=== PATIENT | female | born 1985 | race African-American/Black ===

== ENCOUNTER 2017-12-29 18:17 | Inpatient (IN) | payer OTHER ==
[2017-12-29] MEDS ORDERED: ACETAMINOPHEN INJECTION 100 ML IVPB ONE (18:43)
[2017-12-29] MEDS ORDERED: SODIUM CHLORIDE 1,000 ML IV STA (18:47)
[2017-12-29 19:09] LABS: VENOUS PC02 41.1 mmHg (38-52); VENOUS PH 7.4 (7.32-7.42)
[2017-12-29 19:14] LABS: BASO % 0.2 % (0-2.0); HEMATOCRIT 35.3 % (32.4-45.2); HEMOGLOBIN 10.8 GM/dL (10.7-15.3); MCHC 30.6 g/dl (32.0-36.0); MEAN CELL VOLUME 64.4 fl (80-96); MEAN PLT VOLUME 8.3 fl (7.5-11.1); MONO % 15.4 % (3.8-10.2); NEUT % 71.4 % (42.8-82.8); PLATELET COUNT 310 K/MM3 (134-434); RBC 5.47 M/mm3 (3.60-5.2); RDW 17.1 % (11.6-15.6); WHITE BLOOD COUNT 5.8 K/mm3 (4.0-10.0)
[2017-12-29 19:22] LABS: URINE APPEARANCE CLOUDY; URINE BILIRUBIN NEGATIVE (<2.0 mg/dL); URINE COLOR YELLOW; URINE GLUCOSE (UA) NEGATIVE (NEGATIVE); URINE KETONE 2+ (NEGATIVE); URINE LEUK ESTERASE NEGATIVE (NEGATIVE); URINE NITRITE NEGATIVE (NEGATIVE); URINE PROTEIN 2+ (NEGATIVE); URINE UROBILINOGEN NEGATIVE mg/dL (0.2-1.0)
[2017-12-29 19:27] LABS: MCH 19.7 pg (25.7-33.7)
[2017-12-29 19:29] LABS: EPI CELLS MANY /HPF (FEW); URINE BACTERIA RARE /hpf (NONE SEEN); URINE MUCUS RARE
--- NOTE | 2017-12-29 19:47 | PDOC ---
History of Present Illness - General History Source: Patient Exam Limitations: No Limitations - History of Present Illness Initial Comments: 12/29/17 19:36 32 yo female no significant pmh, BIBA from urgent care, presents to ED with 3 days of NB/NB vomiting, fevers, headache, generalized weakness and poor appetite. Pt returned from a 6 month trip from [place] 1 week ago and admits to drinking tap water and states her was on the trip with her and developed AL that have subsided. Pt went to urgent care today and become profoundly weak to the point where she collapsed in the clinic hitting the side of her head. Patient denies changes in vision, 1 sided sensory deficits or weakness or new/worsening AL after the fall. Pt denies cough, sore throat, ear pain, burning/pain or increased freq on urination, no neck stiffness, abdominal pain, CP or SOB but does admit to having loose stools since Thursday and not being able to eat. <Didier Brooks - Last Filed: 12/29/17 21:57> <Marcia Raymundo - Last Filed: 12/29/17 22:18> - General Chief Complaint: SIRS, Suspected/Possible Stated Complaint: Diarrhea Time Seen by Provider: 12/29/17 18:40 Past History - Past Medical History Asthma: Yes COPD: No - Suicide/Smoking/Psychosocial Hx Smoking History: Never smoked Have you smoked in the past 12 months: No Information on smoking cessation initiated: No Hx Alcohol Use: No Drug/Substance Use Hx: No Substance Use Type: None <Didier Brooks - Last Filed: 12/29/17 21:57> <Marcia Raymundo - Last Filed: 12/29/17 22:18> - Past Medical History Allergies/Adverse Reactions: Allergies Allergy/AdvReac Type Severity Reaction Status Date / Time No Known Allergies Allergy Verified 12/29/17 18:29 Review of Systems - Review of Systems Constitutional: Yes: Chills, Fever Respiratory: No: Shortness of Breath ABD/GI: Yes: Diarrhea (loose non bloody stools 3 days), Nausea, Vomiting (2X a day for 3 days NB/NB). No: Constipated : No: Burning, Dysuria Musculoskeletal: No: Back Pain Neurological: Yes: Headache, Weakness (generalized). No: Numbness, Paresthesia <Didier Brooks - Last Filed: 12/29/17 21:57> *Physical Exam - Vital Signs Last Vital Signs Temp Pulse Resp BP Pulse Ox 102.9 F H 104 H 20 125/79 100 12/29/17 18:29 12/29/17 18:29 12/29/17 18:29 12/29/17 18:29 12/29/17 18:29 - Physical Exam General Appearance: Yes: Nourished, Appropriately Dressed, Apparent Distress ( not able to sit up in bed due to generalized weakness) HEENT: positive: EOMI, JANINA. negative: TM Bulging, TM Dull, TM Erythema Respiratory/Chest: positive: Lungs Clear, Normal Breath Sounds. negative: Crackles, Wheezing Cardiovascular: positive: Regular Rhythm, Regular Rate (81 BPM on reassesment ) , S1, S2. negative: Edema, JVD, Murmur Vascular Pulses: Dorsalis-Pedis (R): 3+, Doralis-Pedis (L): 3+ Gastrointestinal/Abdominal: positive: Flat, Soft. negative: Pulsatile Mass, Guarding, Rebound, Tenderness Extremity: positive: Normal Capillary Refill Integumentary: positive: Normal Color, Dry, Warm Neurologic: positive: bin filler II-XII NML intact, Fully Oriented, Alert, Normal Mood/ Affect, Normal Response, Motor Strength 5/5. negative: Facial Droop, Sensory Deficit <Didier Brooks - Last Filed: 12/29/17 21:57> - Vital Signs Last Vital Signs Temp Pulse Resp BP Pulse Ox 101.6 F H 81 22 H 107/67 100 12/29/17 21:57 12/29/17 21:57 12/29/17 21:07 12/29/17 21:57 12/29/17 21:57 <Marcia Raymundo - Last Filed: 12/29/17 22:18> ED Treatment Course - LABORATORY CBC & Chemistry Diagram: 12/29/17 18:52 12/29/17 18:52 - ADDITIONAL ORDERS Additional order review: Laboratory Results 12/29/17 12/29/17 18:52 18:52 VBG pH 7.40 POC VBG pCO2 41.1 POC VBG pO2 26.0 L Mixed VBG HCO3 24.8 Urine Color Yellow Urine Appearance Cloudy Urine pH 5.0 Ur Specific [place] 1.027 Urine Protein 2+ H Urine Glucose (UA) Negative Urine Ketones 2+ H Urine Blood Negative Urine Nitrite Negative Urine Bilirubin Negative Urine Urobilinogen Negative Ur Leukocyte Esterase Negative 12/29/17 18:52 RBC 5.47 H MCV 64.4 L MCHC 30.6 L RDW 17.1 H MPV 8.3 Neutrophils % 71.4 Lymphocytes % 13.0 Monocytes % 15.4 H Eosinophils % 0.0 Basophils % 0.2 <Didier Brooks - Last Filed: 12/29/17 21:57> - LABORATORY CBC & Chemistry Diagram: 12/29/17 18:52 12/29/17 18:52 - ADDITIONAL ORDERS Additional order review: Laboratory Results 12/29/17 12/29/17 12/29/17 19:34 19:34 18:52 PT with INR 18.40 H INR 1.55 H PTT (Actin FS) 36.5 VBG pH POC VBG pCO2 POC VBG pO2 Mixed VBG HCO3 Sodium Potassium Chloride Carbon Dioxide Anion Gap BUN Creatinine Creat Clearance w eGFR Random Glucose Lactic Acid 1.0 Calcium Total Bilirubin AST ALT Alkaline Phosphatase Troponin I Total Protein Albumin Urine Color Urine Appearance Urine pH Ur Specific [place] Urine Protein Urine Glucose (UA) Urine Ketones Urine Blood Urine Nitrite Urine Bilirubin Urine Urobilinogen Ur Leukocyte Esterase Urine WBC (Auto) Urine RBC (Auto) Ur Epithelial Cells Urine Bacteria Urine Mucus Urine HCG, Qual Negative 12/29/17 12/29/17 12/29/17 18:52 18:52 18:52 PT with INR INR PTT (Actin FS) VBG pH 7.40 POC VBG pCO2 41.1 POC VBG pO2 26.0 L Mixed VBG HCO3 24.8 Sodium 136 Potassium 3.9 Chloride 100 Carbon Dioxide 25 Anion Gap 11 BUN 11 Creatinine 0.9 Creat Clearance w eGFR > 60 Random Glucose 65 L Lactic Acid Calcium 8.5 Total Bilirubin 0.3 AST 21 ALT 23 Alkaline Phosphatase 80 Troponin I < 0.02 Total Protein 7.9 Albumin 3.8 Urine Color Urine Appearance Urine pH Ur Specific [place] Urine Protein Urine Glucose (UA) Urine Ketones Urine Blood Urine Nitrite Urine Bilirubin Urine Urobilinogen Ur Leukocyte Esterase Urine WBC (Auto) Urine RBC (Auto) Ur Epithelial Cells Urine Bacteria Urine Mucus Urine HCG, Qual 12/29/17 18:52 PT with INR INR PTT (Actin FS) VBG pH POC VBG pCO2 POC VBG pO2 Mixed VBG HCO3 Sodium Potassium Chloride Carbon Dioxide Anion Gap BUN Creatinine Creat Clearance w eGFR Random Glucose Lactic Acid Calcium Total Bilirubin AST ALT Alkaline Phosphatase Troponin I Total Protein Albumin Urine Color Yellow Urine Appearance Cloudy Urine pH 5.0 Ur Specific [place] 1.027 Urine Protein 2+ H Urine Glucose (UA) Negative Urine Ketones 2+ H Urine Blood Negative Urine Nitrite Negative Urine Bilirubin Negative Urine Urobilinogen Negative Ur Leukocyte Esterase Negative Urine WBC (Auto) 5 Urine RBC (Auto) 3 Ur Epithelial Cells Many Urine Bacteria Rare Urine Mucus Rare Urine HCG, Qual 12/29/17 18:52 RBC 5.47 H MCV 64.4 L MCHC 30.6 L RDW 17.1 H MPV 8.3 Neutrophils % 71.4 Lymphocytes % 13.0 Monocytes % 15.4 H Eosinophils % 0.0 Basophils % 0.2 - Medications Given in the ED: ED Medications Discontinued Medications Generic Name Dose Route Start Last Admin Trade Name Freq PRN Reason Stop Dose Admin Sodium Chloride 1,000 mls @ 1,000 mls/hr 12/29/17 18:47 12/29/17 18:59 Normal Saline - IV 12/29/17 19:46 1,000 mls/hr ASDIR STA Administration Ciprofloxacin/Dextrose 400 mg in 200 mls @ 200 mls/hr 12/29/17 20:22 21:09 Cipro 400 Mg Premix Ivpb (Restricted To Id) IVPB 12/29/17 21:21 200 mls/hr ONCE ONE Administration Ketorolac Tromethamine 15 mg 12/29/17 20:22 12/29/17 21:15 Toradol Injection - IVPUSH 12/29/17 20:23 15 mg ONCE ONE Administration Sodium Chloride 1,000 ml 12/29/17 20:22 12/29/17 21:09 Normal Saline - IV 12/29/17 20:23 1,000 ml ONCE ONE Administration <Marcia Raymundo - Last Filed: 12/29/17 22:18> Medical Decision Making - Medical Decision Making 12/29/17 20:25 32 yo BIBA after being profoundly weak with LOC/syncopal event. vitals 104 HR and 102.9 temp SIRS workup completed due to protocol neg WBC no anemia no electrolyte abnormalities no UTI Pt received 1L of fluid and 1 g of tylenol , rectal temp 101.4 feeling a little better but still complaining of AL Vitals reassessed: 100% O2 RA, 107/67, 81 HR, 101.6 temp DDX: Gastroenteritis, travelers diarrhea Cipro and another L NS ordered, likely travelers diarrhea Will admit to observation do to severity of symptoms <Didier Brooks - Last Filed: 12/29/17 21:57> *DC/Admit/Observation/Transfer - Discharge Dispostion Decision to Admit order: Yes <Didier Brooks - Last Filed: 12/29/17 21:57> - Discharge Dispostion Decision to Admit order: Yes Decision to Admit order Date/Time: 12/29/17 22:17 <Marcia Raymundo - Last Filed: 12/29/17 22:18> Diagnosis at time of Disposition: Travelers' diarrhea, Gastroenteritis - Discharge Dispostion Condition at time of disposition: Stable - Referrals Referrals: ON STAFF,NOT [Primary Care Provider] - - Patient Instructions - Post Discharge Activity
[2017-12-29 19:48] LABS: ALBUMIN 3.8 g/dl (3.4-5.0); ALK PHOS 80 U/L (45-117); ANION GAP 11 MMOL/L (8-16); BILIRUBIN,TOTAL 0.3 mg/dL (0.2-1); BLOOD UREA NITROGEN 11 mg/dL (7-18); CALCIUM 8.5 mg/dL (8.5-10.1); CHLORIDE 100 mmol/L (98-107); CO2 25 mmol/L (21-32); CREATININE 0.9 mg/dL (0.55-1.3); GLUCOSE,RANDOM 65 mg/dL (74-106); POTASSIUM 3.9 mmol/L (3.5-5.1); SGOT/AST 21 U/L (15-37); SGPT/ALT 23 U/L (13-61); SODIUM 136 mmol/L (136-145); TOT PROT 7.9 g/dl (6.4-8.2)
[2017-12-29 20:18] LABS: INR 1.55 (0.83-1.09); PROTHROMBIN TIME (PATIENT) 18.4 SEC (9.7-13.0)
[2017-12-29 20:20] LABS: ACTIVATED PTT 36.5 SECONDS (25.2-36.5)
--- NOTE | 2017-12-29 20:21 | PDOC ---
Attending Attestation - Resident Resident Name: Didier Brooks - ED Attending Attestation I have performed the following: I have examined & evaluated the patient, The case was reviewed & discussed with the resident, I agree w/resident's findings & plan - HPI HPI: 12/29/17 21:59 The patient is a 32 year old female, with no significant past medical history, who presents to the emergency department from urgent care after sudden onset of generalized weakness and syncope. She reportedly hit the right side of her face on the ground and woke up on the floor after an unknown amount of time, however, reports her family witness the syncopal episode. The patient states she went to the urgent care to be evaluated for 3 days with loose stools, nausea , vomiting, subjective fevers, headache, generalized weakness and poor appetite. The patient reportedly returned from a 6 month trip from [place] 1 week ago and admits to drinking tap water. no other sick contacts, though improved with similar sx. The patient denies chest pain, shortness of breath, headache and dizziness. The patient denies dysuria, frequency, urgency and hematuria. Allergies: NKDA - Physicial Exam PE: 12/29/17 21:59 NAD, malaised appearing, PERRL, EOMI, dry mucus membranes, nl conjunctiva, anicteric; neck supple. lungs clear, +tachycardicm abdomen soft nontender. + obese. KOENIG x4, no focal neuro deficits. No peripheral edema. normal color for ethnicity, [facility]. 12/29/17 22:04 - Medical Decision Making 12/29/17 21:57 32 YOF with AP, n/v/d, x 3 days, recent trip [place]. also syncopal episode today, now back to baseline DDx abdominal pain: Renal colic, biliary colic, GERD, PUD, esophageal spasm, pancreatitis, hepatitis, colitis, gastroenteritis, cholecystitis, UTI, pyelonephritis, metabolic/electrolyte derangements. Vital signs reviewed, +tachy and febrile. laboratory results and imaging reviewed, basic labs and lytes wnl, notable for normal wbc ct, LFTs and lipase. neg preg test. UA_neg for infection, +ketones c/w dehydration CXR_clear, no acute pathology ED course: no acute events, remained stable and well appearing. Clinically improved after interventions, including IVF and antipyretics/analgesia. ciprofloxacin for traveler's diarrhea/gastroenteritis sx. no CT head indicated, back to baseline, mild trauma and witnessed. no focal neuro deficits. continues to be malaised, febrile and symptomatic, difficulty tolerating PO. pt prefers to be admitted for short stay, will observation admit for hydration, serial exams and monitoring Dispo: admit to hospitalist team for observation, gastroenteritis, supportive care and hydration Dx. gastroenteritis, diarrheal illness, dehydration 12/29/17 22:02 12/29/17 22:04
[2017-12-29] MEDS ORDERED: KETOROLAC TROMETHAMINE 15 MG/ML VIAL IVPUSH ONE (20:22)
[2017-12-29] MEDS ORDERED: CIPROFLOXACIN 400 MG/D5W 400 MG/200 ML IVPB IVPB ONE (20:22)
[2017-12-29] MEDS ORDERED: SODIUM CHLORIDE 0.9% 500 ML INFUS.BAG IV ONE (20:22)
[2017-12-29] MEDS ORDERED: KETOROLAC TROMETHAMINE 15 MG/ML VIAL ONE (20:45)
[2017-12-29 20:54] LABS: ANISOCYTOSIS 1+
--- NOTE | 2017-12-29 22:57 | PN ---
Teaching Attending Note Name of Resident: Karma Barbosa ATTENDING PHYSICIAN STATEMENT I saw and evaluated the patient. I reviewed the resident's note and discussed the case with the resident. I agree with the resident's findings and plan as documented. SUBJECTIVE: Seen and examined. Please refer to resident note for additional historical information. She is a 32 y/o AAF with no pertinent PMH who takes no chronic Rx medications. She presents to the ER with a CC of diarrhea since thursday with occasional nausea and vomitting. She lives in [facility] but visits her significant other in [place]. Just got back from [facility] on thursday; no sick contacts, no food exposures, no rashes, no bug bites, no bone pain. Denies any chest pain or pulmonary sx. She was slightly tachy on presentation but it did resolve with fluids. She had some nausea and vomitting through yesterday but today it is only the diarrhea; 2x before she came and once while in ER. Will place on observation for additional workup and monitoring. OBJECTIVE: VSS, labs and imaging reviewed NAD, resting in bed, AAOx3 NT ND +BS RRR s1/2 no mgr Lungs CTAB sym exp No JVD, trachea midline ASSESSMENT AND PLAN: 1) Acute Diarrheal Illness, likely gastroenteritis -Febrile with nausea and vomitting and diarrhea; only diarrhea today x3 so far. She is hemodynamically stable and tachycardia resolved with fluid repletion. Got back from [facility] on Thursday and developed sx Thursday; no sick contacts, no food exposures, etc. No bone pain, no rashes. -Will obtain stool cx, lactoferrin, Cdiff. If she worsens or develops a white count or abdominal pain will scan her abdomen. Empirically give 7 day course metro/lq -Advance diet as tolerated -PRN nausea control; if stool studies are negative can add immodium 2) Obesity -Naturopath when clinically appropriate FENA -LR@100 -Monitor and replace PRN -Full liquids advancing as tolerated -As tolerated Full Code
[2017-12-30] MEDS: DEXTROSE 5%-LACTATED RINGERS 1,000 ML IV SCH ×2 (00:05→17:42)
--- NOTE | 2017-12-30 00:07 | HP ---
CHIEF COMPLAINT: fever and diarrhea PCP: HISTORY OF PRESENT ILLNESS: Patient is a 32 y/o female with a history of asthma who presents with fever and diarrhea. She reports these symptoms began two days ago. Today she decided to go to urgent care where she fainted in the waiting room and reports she hit her head. She has had four episodes of diarrhea yesterday and today, about three episodes of vomiting yesterday and is currently nauseous. She described the diarrhea as yellow and watery, the vomit was also watery. She has not been able to eat much. She reports she had olive garden the day she got sick. She states she has been feverish the past two days and tylenol did not help. The fever is constant. She returned from a 6 month trip from [place] last thursday, one week ago. She denies any of these symptoms in the past. She states she also currently has a headache. She denies abdominal pain, chest pain, or shortness of breath. ER course was notable for: (1) (2) (3) Recent Travel: [place] PAST MEDICAL HISTORY: asthma PAST SURGICAL HISTORY: csection Social History: Smoking: denies Alcohol: denies Drugs: denies Family History: Allergies No Known Allergies Allergy (Verified 12/29/17 18:29) HOME MEDICATIONS: REVIEW OF SYSTEMS CONSTITUTIONAL: fever, Absent: chills, diaphoresis, generalized weakness, malaise, loss of appetite, weight change HEENT: Absent: rhinorrhea, nasal congestion, throat pain, throat swelling, difficulty swallowing, mouth swelling, ear pain, eye pain, visual changes CARDIOVASCULAR: Absent: chest pain, syncope, palpitations, irregular heart rate, lightheadedness , peripheral edema RESPIRATORY: Absent: cough, shortness of breath, dyspnea with exertion, orthopnea, wheezing, stridor, hemoptysis GASTROINTESTINAL:nausea, vomiting, diarrhea, Absent: abdominal pain, abdominal distension, constipation, melena, hematochezia GENITOURINARY: Absent: dysuria, frequency, urgency, hesitancy, hematuria, flank pain, genital pain MUSCULOSKELETAL: Absent: myalgia, arthralgia, joint swelling, back pain, neck pain SKIN: Absent: rash, itching, pallor HEMATOLOGIC/IMMUNOLOGIC: Absent: easy bleeding, easy bruising, lymphadenopathy, frequent infections ENDOCRINE: Absent: unexplained weight gain, unexplained weight loss, heat intolerance, cold intolerance NEUROLOGIC: Absent: headache, focal weakness or paresthesias, dizziness, unsteady gait, seizure, mental status changes, bladder or bowel incontinence PSYCHIATRIC: Absent: anxiety, depression, suicidal or homicidal ideation, hallucinations. PHYSICAL EXAMINATION Vital Signs - 24 hr 12/29/17 12/29/17 12/29/17 18:29 21:07 21:16 Temperature 102.9 F H 99.8 F H Pulse Rate 104 H Pulse Rate [ 107 H Apical] Respiratory 20 22 H Rate Blood Pressure 125/79 Blood Pressure 107/67 [Left Arm] O2 Sat by Pulse 100 99 Oximetry (%) 12/29/17 21:57 Temperature 101.6 F H Pulse Rate Pulse Rate [ 81 Apical] Respiratory Rate Blood Pressure Blood Pressure 107/67 [Left Arm] O2 Sat by Pulse 100 Oximetry (%) GENERAL: Awake, alert, and fully oriented, in no acute distress. HEAD: Normal with no signs of trauma. EYES: Pupils equal, round and reactive to light, extraocular movements intact, sclera anicteric, conjunctiva clear. EARS, NOSE, THROAT: Moist mucous membranes. NECK: Normal range of motion, supple without lymphadenopathy, JVD, or masses. LUNGS: Breath sounds equal, clear to auscultation bilaterally. No wheezes, and no crackles. No accessory muscle use. HEART: Regular rate and rhythm, normal S1 and S2 without murmur, rub or gallop. ABDOMEN: Soft, nontender, not distended, normoactive bowel sounds, no guarding, no rebound, no masses. MUSCULOSKELETAL: Normal range of motion at all joints. No bony deformities or tenderness. No CVA tenderness. LOWER EXTREMITIES: 2+ pulses, warm, well-perfused. No calf tenderness. No peripheral edema. NEUROLOGICAL: Cranial nerves II-XII intact. Normal speech. PSYCHIATRIC: Cooperative. Good eye contact. Appropriate mood and affect. SKIN: Warm, dry, normal turgor, no rashes or lesions noted, normal capillary refill. Laboratory Results - last 24 hr CBC, BMP 12/29/17 18:52 12/29/17 18:52 ASSESSMENT/PLAN: Patient is a 32 y/o female with a history of asthma who presents with fever and diarrhea. #fever and diarrhea likely gastroenteritis - cover with Levaquin and Flagyl, QTC 454 - f/u stool cx - f/u lactoferrin, c diff, ova and parasites, stool occult blood - full liquid diet, advance as tolerated - tylenol 650 q4 prn fever, current temp 99.8 - d5LR @ 100 - monitor on obs - if white count worsens or abd pain develops consider abd CT Visit type - Emergency Visit Emergency Visit: Yes ED Registration Date: 12/29/17 Care time: The patient presented to the Emergency Department on the above date and was hospitalized for further evaluation of their emergent condition. - New Patient This patient is new to me today: Yes Date on this admission: 12/30/17 - Critical Care Critical Care patient: No
[2017-12-30 08:29] VITALS: BMI 31.8
[2017-12-30] MEDS: ACETAMINOPHEN 325 MG TABLET (FP) PO PRN ×2 (09:42→21:13)
--- NOTE | 2017-12-30 12:01 | PN ---
Physical Exam: SUBJECTIVE: Patient seen and examined this morning. She mentions having multiple episodes of clear NBNB vomiting followed by Loose yellow BMs that have started after dining at [employer]. The BMs have decreased in amount since Thursday however. Additionally she mentions decreased PO Intake. Denies any recent diet changes, new medications, marijuana use, new rashes, bug bites or infections during her trip. She says that other who also dined there have not felt a similar discomfort. This AM, she continues to have Dry heaves however no episodes of vomiting. She is also having a 10/10 "pounding" frontal headache, that is constant, worsens with light, and is relieved with tylenol. OBJECTIVE: Vital Signs Period Temp Pulse Resp BP Sys/[place] Pulse Ox Last 24 Hr 98.6 F-102.9 F 78-107 18-22 107-127/67-79 98-100 GENERAL: A&Ox3, NAD, in mild distress HEAD: NCAT EYES: PERRL, EOMI ENT: Oropharynx clear without exudates, moist mucous membranes. NECK: No JVD LUNGS: Breath sounds equal, clear to auscultation bilaterally, no wheezes. HEART: Regular rate and rhythm, S1, S2 without murmur. ABDOMEN: Obese, Soft, nontender, nondistended, + bowel sounds, no guarding EXTREMITIES: 2+ pulses, warm, well-perfused, no edema. NEUROLOGICAL: Cranial nerves II through XII grossly intact. Normal speech. PSYCH: Normal mood, normal affect. SKIN: Warm, dry, normal turgor, no rashes or lesions noted Laboratory Results - last 24 hr 12/29/17 12/29/17 12/29/17 18:52 18:52 18:52 WBC 5.8 RBC 5.47 H Hgb 10.8 Hct 35.3 MCV 64.4 L MCH 19.7 L MCHC 30.6 L RDW 17.1 H Plt Count 310 MPV 8.3 Absolute Neuts (auto) 4.2 Neutrophils % 71.4 Lymphocytes % 13.0 Monocytes % 15.4 H Eosinophils % 0.0 Basophils % 0.2 Nucleated RBC % 0 Hypochromia 2+ Anisocytosis 1+ PT with INR INR PTT (Actin FS) VBG pH 7.40 POC VBG pCO2 41.1 POC VBG pO2 26.0 L Mixed VBG HCO3 24.8 Sodium Potassium Chloride Carbon Dioxide Anion Gap BUN Creatinine Creat Clearance w eGFR Random Glucose Lactic Acid Calcium Total Bilirubin AST ALT Alkaline Phosphatase Troponin I Total Protein Albumin Urine Color Yellow Urine Appearance Cloudy Urine pH 5.0 Ur Specific [place] 1.027 Urine Protein 2+ H Urine Glucose (UA) Negative Urine Ketones 2+ H Urine Blood Negative Urine Nitrite Negative Urine Bilirubin Negative Urine Urobilinogen Negative Ur Leukocyte Esterase Negative Urine WBC (Auto) 5 Urine RBC (Auto) 3 Ur Epithelial Cells Many Urine Bacteria Rare Urine Mucus Rare Urine HCG, Qual 12/29/17 12/29/17 12/29/17 18:52 18:52 18:52 WBC RBC Hgb Hct MCV MCH MCHC RDW Plt Count MPV Absolute Neuts (auto) Neutrophils % Lymphocytes % Monocytes % Eosinophils % Basophils % Nucleated RBC % Hypochromia Anisocytosis PT with INR INR PTT (Actin FS) VBG pH POC VBG pCO2 POC VBG pO2 Mixed VBG HCO3 Sodium 136 Potassium 3.9 Chloride 100 Carbon Dioxide 25 Anion Gap 11 BUN 11 Creatinine 0.9 Creat Clearance w eGFR > 60 Random Glucose 65 L Lactic Acid Calcium 8.5 Total Bilirubin 0.3 AST 21 ALT 23 Alkaline Phosphatase 80 Troponin I < 0.02 Total Protein 7.9 Albumin 3.8 Urine Color Urine Appearance Urine pH Ur Specific [place] Urine Protein Urine Glucose (UA) Urine Ketones Urine Blood Urine Nitrite Urine Bilirubin Urine Urobilinogen Ur Leukocyte Esterase Urine WBC (Auto) Urine RBC (Auto) Ur Epithelial Cells Urine Bacteria Urine Mucus Urine HCG, Qual Negative 12/29/17 12/29/17 19:34 19:34 WBC RBC Hgb Hct MCV MCH MCHC RDW Plt Count MPV Absolute Neuts (auto) Neutrophils % Lymphocytes % Monocytes % Eosinophils % Basophils % Nucleated RBC % Hypochromia Anisocytosis PT with INR 18.40 H INR 1.55 H PTT (Actin FS) 36.5 VBG pH POC VBG pCO2 POC VBG pO2 Mixed VBG HCO3 Sodium Potassium Chloride Carbon Dioxide Anion Gap BUN Creatinine Creat Clearance w eGFR Random Glucose Lactic Acid 1.0 Calcium Total Bilirubin AST ALT Alkaline Phosphatase Troponin I Total Protein Albumin Urine Color Urine Appearance Urine pH Ur Specific [place] Urine Protein Urine Glucose (UA) Urine Ketones Urine Blood Urine Nitrite Urine Bilirubin Urine Urobilinogen Ur Leukocyte Esterase Urine WBC (Auto) Urine RBC (Auto) Ur Epithelial Cells Urine Bacteria Urine Mucus Urine HCG, Qual Active Medications Acetaminophen (Tylenol -) 650 mg PO Q6H PRN PRN Reason: Fever Or Pain Last Admin: 12/30/17 09:42 Dose: 650 mg Heparin Sodium (Porcine) (Heparin -) 5,000 unit SQ TID MARCELL Metronidazole (Flagyl 500mg Premixed Ivpb -) 500 mg in 100 mls @ 100 mls/hr IVPB Q8H-IV MARCELL Last Admin: 12/30/17 09:43 Dose: 100 mls/hr Levofloxacin (Levaquin 750 Mg Premixed Ivpb -) 750 mg in 150 mls @ 100 mls/hr IVPB DAILY [facility]; Protocol Last Admin: 12/30/17 10:42 Dose: 100 mls/hr Dextrose/Lactated Ringer's (D5-Lr -) 1,000 mls @ 100 mls/hr IV ASDIR [facility]CE[facility] Last Admin: 12/30/17 00:05 Dose: 100 mls/hr IMAGING -CXR: No evidence of active pulmonary disease. -EKG: NORMAL SINUS RHYTHM, NONSPECIFIC T WAVE ABNORMALITY, VR 79, QTc 454 ASSESSMENT/PLAN: 32 y/o F with a PMHx of asthma who presents with fever and diarrhea. #Acute Diarrheal Illness -Likely Gastroenteritis given Fever, Diarrhea, Nausea/Vomiting -Urine Hcg negative -Continue Levaquin, Flagyl (Started on 12/29, likely 7 day course) -Stool cx, Lactoferrin, C. Diff, Ova and parasite, FOBT pending -CXR noted above, Blood and Urine Cx pending -Full liquid diet, Will advance as tolerated -Can consider CT A/P if develops WBC count, Abdominal pain or if sx's worsen -Continue Tylenol for fever -Continue D5LR @ 100 mls/hr #Hx of Asthma -Patient says she currently does not use a home inhaler; Pharmacy shows she is perscribed Ventolin and Pulmicort -Not complaining of any sx's at this time, Will reinstate home inhalers if patient becomes symptomatic -Continue to monitor #FEN -LR @ 100 mls/hr -Lytes WNL -Full liquid diet, advance as tolerated #PPx -DVT: Heparin Dispo: Obs, Med-Surg Visit type - Emergency Visit Emergency Visit: Yes ED Registration Date: 12/29/17 Care time: The patient presented to the Emergency Department on the above date and was hospitalized for further evaluation of their emergent condition. - New Patient This patient is new to me today: Yes Date on this admission: 12/30/17 - Critical Care Critical Care patient: No - Discharge Referral Referred to [facility] Med P.C.: No
--- NOTE | 2017-12-30 12:05 | EKG ---
Test Reason : Blood Pressure : / mmHG Vent. Rate : 079 BPM Atrial Rate : 079 BPM P-R Int : 180 ms QRS Dur : 090 ms QT Int : 396 ms P-R-T Axes : 064 022 003 degrees QTc Int : 454 ms NORMAL SINUS RHYTHM NONSPECIFIC T WAVE ABNORMALITY ABNORMAL ECG NO PREVIOUS ECGS AVAILABLE Confirmed by BAHMAN WARNER MD ([id number]) on 12/30/2017 12:04:39 PM Referred By: Confirmed By:BAHMAN WARNER MD
[2017-12-30] MEDS: HEPARIN NA (PORCINE) 5,000 UNITS/ML 1ML VIAL SQ SCH ×2 (15:19→21:14)
--- NOTE | 2017-12-30 15:21 | PN ---
Teaching Attending Note Name of Resident: Filipe Becerra ATTENDING PHYSICIAN STATEMENT I saw and evaluated the patient. I reviewed the resident's note and discussed the case with the resident. I agree with the resident's findings and plan as documented. SUBJECTIVE: No fever or chills . no abd pain . no diarrhea today but still nauseous. no vomiting has AL . got her period today OBJECTIVE: NAD CV : RRR Lungs: CTAB ext : no edema Abd: soft, NT, ND , NL BS ASSESSMENT AND PLAN: 32 y/o lady with no PMH who presented with abd pain and diarrhea . 1- Acute N/V/diarrhea : viral vs bacterial gastroenteritis. already improved and no diarrhea today. - DC levaquin due to prolonged QTC 474 on EKG - can cont flagyl empiricaly - no stool studies yet as no stooling - suspicion for cholera is low, any way diarrhea resolved - cont IVF - full liquid, advance in am. possible dc tomorrow if tolerates diet
[2017-12-30] MEDS ORDERED: ONDANSETRON 4 MG/2 ML VIAL IVPUSH ONE (19:00)
[2017-12-31] MEDS: ACETAMINOPHEN 325 MG TABLET (FP) PO PRN ×3 (03:08→22:09)
[2017-12-31] MEDS: HEPARIN NA (PORCINE) 5,000 UNITS/ML 1ML VIAL SQ SCH ×3 (05:14→21:08)
[2017-12-31] MEDS: DEXTROSE 5%-LACTATED RINGERS 1,000 ML IV SCH (05:52)
[2017-12-31 09:16] LABS: BASO % 0.6 % (0-2.0); HEMATOCRIT 35.7 % (32.4-45.2); HEMOGLOBIN 10.6 GM/dL (10.7-15.3); LYMPH % 34.7 % (8-40); MCHC 29.7 g/dl (32.0-36.0); MEAN CELL VOLUME 64.8 fl (80-96); MEAN PLT VOLUME 8.7 fl (7.5-11.1); MONO % 11.7 % (3.8-10.2); PLATELET COUNT 249 K/MM3 (134-434); RBC 5.51 M/mm3 (3.60-5.2); RDW 17.1 % (11.6-15.6); WHITE BLOOD COUNT 2.7 K/mm3 (4.0-10.0)
[2017-12-31 09:52] LABS: ALBUMIN 3.3 g/dl (3.4-5.0); ALK PHOS 66 U/L (45-117); ANION GAP 9 MMOL/L (8-16); BILIRUBIN,TOTAL 0.2 mg/dL (0.2-1); BLOOD UREA NITROGEN 5 mg/dL (7-18); CALCIUM 8.6 mg/dL (8.5-10.1); CHLORIDE 102 mmol/L (98-107); CO2 27 mmol/L (21-32); CREATININE 0.8 mg/dL (0.55-1.3); GLUCOSE,RANDOM 87 mg/dL (74-106); MAGNESIUM 2.1 mg/dL (1.8-2.4); PHOSPHOROUS 2.6 mg/dL (2.5-4.9); POTASSIUM 3.8 mmol/L (3.5-5.1); SGOT/AST 27 U/L (15-37); SGPT/ALT 22 U/L (13-61); SODIUM 139 mmol/L (136-145); TOT PROT 6.9 g/dl (6.4-8.2)
[2017-12-31 09:55] LABS: MCH 19.2 pg (25.7-33.7)
--- NOTE | 2017-12-31 11:49 | PN ---
Teaching Attending Note Name of Resident: Rosy Diaz ATTENDING PHYSICIAN STATEMENT I saw and evaluated the patient. I reviewed the resident's note and discussed the case with the resident. I agree with the resident's findings and plan as documented. SUBJECTIVE: cont to have fever. feels tired, and nauseous. diarrhea has resolved. no abd pain. ate her liquid diet . 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 mom has diarrheal illness now. she reports Dengue fever outbreak in [place] AL is better compared to yesterday. no neck stiffness or pain . OBJECTIVE: NAD. MMM. oropharynx with no erythema , exudate or enlagred tonsils . supple neck. CV : RRR, no MRG Lungs: CTAB Ext: no edema Abd: soft, NT, ND , NL BS ASSESSMENT AND PLAN: 32 y/o lady with no PMH who presented with abd pain and diarrhea . 1- Sepsis: with N/V/diarrhea: gastroenteritis is still in DDX ( viral vs bacterial) due to continued fever will do more investigations. - check parasite smear - check flu swab - coag neg staph in one set is likely contaminant. will repeat cx - off levaquin due to prolonged Qtc, and improvement in diarrhe a - cont flagyl empirically - cont iVF - even if she has Dengue fever, treatment is supportive. - leukopenia/neutropenia is new , will monitor - consult ID for help 2- microcytosis: iron studies pending OC
--- NOTE | 2017-12-31 15:03 | CON.ID ---
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 she ate local food and water [place] to [place] on [place] On Thursday she went to [employer] and ate shrimp and chicken [place] no one else ate this after she went home she had abdominal pain, diarrhea and fever and vomiting no blood loose stools persisted Thursday she went to [facility] where she collapsed before she was seen diarrhea has resolved vomited twice yesterday no abdominal pain has a headache no nuchal rigidity no photophobia no sore throat mother with fever and weakness in [place]- monagamous daughter 20 months is not sick sig other not sick +mosquito bites in [place] denies HIV risk factors, agreeable to testing - History Source History Provided By: Patient Limitations to Obtaining History: No Limitations - Past Medical History Pulmonary: Yes: Asthma - Past Surgical History Past Surgical History: Yes: None - Alcohol/Substance Use Hx Alcohol Use: No - Smoking History Smoking history: Never smoked Have you smoked in the past 12 months: No - Social History Usual Living Arrangement: With Significant Other ADL: Independent Occupation: home with child Place of : Other ([place]) History of Recent Travel: Yes ([place]) Home Medications - Allergies Allergies/Adverse Reactions: Allergies Allergy/AdvReac Type Severity Reaction Status Date / Time No Known Allergies Allergy Verified 12/29/17 18:29 - Home Medications Home Medications: Ambulatory Orders Albuterol Sulfate Inhaler - [Ventolin Hfa Inhaler -] 1 - 2 inh PO Q4H 12/30/17 Budesonide [Pulmicort Flexhaler] 180 mcg IH BID 12/30/17 Family Disease History - Family Disease History Family Disease History: CA: Mother (breast cancer), Brother (hodgekins lymphoma) Review of Systems - Review of Systems Constitutional: reports: Fever, Loss of Appetite, Weakness, Other (no myalgia). denies: Malaise Eyes: reports: No Symptoms HENT: reports: No Symptoms. denies: Difficult Swallowing, Ear Pain, Throat Pain Neck: reports: No Symptoms. denies: Decreased ROM Cardiovascular: denies: Chest Pain, Edema, Shortness of Breath Respiratory: denies: Cough Gastrointestinal: denies: Abdominal Pain, Diarrhea Genitourinary: reports: No Symptoms Physical Exam Vital Signs: Vital Signs Temperature 101.0 F H 12/31/17 14:50 Pulse Rate 94 H 12/31/17 14:50 Respiratory Rate 18 12/31/17 14:50 Blood Pressure 124/75 12/31/17 14:50 O2 Sat by Pulse Oximetry (%) 100 12/30/17 23:00 Constitutional: Yes: Well Nourished, No Distress, Calm Eyes: Yes: Conjunctiva Clear HENT: Yes: Atraumatic, Normocephalic. No: Pharyngeal Erythema, Thrush Neck: Yes: Supple. No: Lymphadenopathy, Rigid, Tenderness Cardiovascular: Yes: Regular Rate and Rhythm Respiratory: Yes: CTA Bilaterally Gastrointestinal: Yes: Normal Bowel Sounds, Soft. No: Distention, Tenderness, Rebound ...Rectal Exam: Yes: Deferred Extremities: Yes: WNL Edema: No Integumentary: No: Rash Neurological: Yes: Alert, Oriented Labs: CBC, BMP 12/31/17 08:45 12/31/17 08:45 Microbiology 12/29/17 18:52 Urine - Urine Clean Catch Urine Culture - Final NO GROWTH OBTAINED 12/29/17 18:54 Blood - Peripheral Venous Blood Culture - Preliminary Staphylococcus Coagulase Neg 12/29/17 18:40 Blood - Peripheral Venous Blood Culture - Preliminary NO GROWTH OBTAINED AFTER 24 HOURS, INCUBATION TO CONTINUE FOR 4 DAYS. Imaging - Results Chest X-ray: Report Reviewed, Image Reviewed Problem List - Problems (1) FUO (fever of unknown origin) Code(s): R50.9 - FEVER, UNSPECIFIED Assessment/Plan in setting of recent travel to [place] pig farm mosquito bite recent meal at restaurant diarrhea/vomiting- resolved await cultures hiv testing influenza testing rocephin - ?typhoid dengue serology clinically looks well continue hydration ?viral d/w hospitalist
[2017-12-31] MEDS ORDERED: DEXTROSE 5%-WATER - 50 ML IVPB ONE (17:29)
[2017-12-31] MEDS ORDERED: cefTRIAXone SODIUM 1 GM VIAL ONE (17:29)
[2017-12-31] MEDS: CEFTRIAXONE 1 GM in DEXTROSE 5%-WATER - 50 ML IVPB SCH (17:37)
--- NOTE | 2017-12-31 19:42 | PN ---
Physical Exam: SUBJECTIVE: Patient seen and examined this morning at bedside. Continued to have fevers overnight however diarrhea and vomit have improved. Endorse body weakness today and continues to have Headache. OBJECTIVE: Vital Signs Period Temp Pulse Resp BP Sys/[place] Pulse Ox Last 24 Hr 98.1 F-102 F 82-94 18-20 106-132/48-75 100-100 GENERAL: A&Ox3, NAD, in mild distress HEAD: NCAT EYES: PERRL, EOMI, Conjunctival erythema noted ENT: Oropharynx clear without exudates, moist mucous membranes. NECK: No JVD LUNGS: Breath sounds equal, clear to auscultation bilaterally, no wheezes. HEART: Regular rate and rhythm, S1, S2 without murmur. ABDOMEN: Obese, Soft, nontender, nondistended, + bowel sounds, no guarding EXTREMITIES: 2+ pulses, no edema. NEUROLOGICAL: Cranial nerves II through XII grossly intact. Normal speech. SKIN: Warm, dry, no rashes or lesions noted Laboratory Results - last 24 hr 12/31/17 12/31/17 12/31/17 07:00 07:00 08:45 WBC 2.7 L RBC 5.51 H Hgb 10.6 L Hct 35.7 MCV 64.8 L MCH 19.2 L MCHC 29.7 L RDW 17.1 H Plt Count 249 MPV 8.7 Absolute Neuts (auto) 1.4 L Neutrophils % 53.0 D Lymphocytes % 34.7 D Monocytes % 11.7 H Eosinophils % 0.0 Basophils % 0.6 Nucleated RBC % 0 Retic Count 0.66 Sodium Potassium Chloride Carbon Dioxide Anion Gap BUN Creatinine Creat Clearance w eGFR Random Glucose Calcium Phosphorus Magnesium Ferritin 1185.1 H Total Bilirubin AST ALT Alkaline Phosphatase Total Protein Albumin HIV 1&2 Antibody Screen HIV P24 Antigen 12/31/17 12/31/17 08:45 16:00 WBC RBC Hgb Hct MCV MCH MCHC RDW Plt Count MPV Absolute Neuts (auto) Neutrophils % Lymphocytes % Monocytes % Eosinophils % Basophils % Nucleated RBC % Retic Count Sodium 139 Potassium 3.8 Chloride 102 Carbon Dioxide 27 Anion Gap 9 BUN 5 L Creatinine 0.8 Creat Clearance w eGFR > 60 Random Glucose 87 Calcium 8.6 Phosphorus 2.6 Magnesium 2.1 Ferritin Total Bilirubin 0.2 AST 27 ALT 22 Alkaline Phosphatase 66 Total Protein 6.9 Albumin 3.3 L HIV 1&2 Antibody Screen Negative HIV P24 Antigen Negative Microbiology 12/29/17 18:40 Blood - Peripheral Venous Blood Culture - Preliminary NO GROWTH OBTAINED AFTER 48 HOURS, INCUBATION TO CONTINUE FOR 3 DAYS. 12/31/17 17:15 Nasopharyngeal Swab Influenza Types A,B Antigen - Preliminary 12/31/17 17:15 Nasopharyngeal Swab - Preliminary 12/29/17 18:52 Urine - Urine Clean Catch Urine Culture - Final NO GROWTH OBTAINED 12/29/17 18:54 Blood - Peripheral Venous Blood Culture - Preliminary Staphylococcus Coagulase Neg Active Medications Acetaminophen (Tylenol -) 650 mg PO Q6H PRN PRN Reason: Fever Or Pain Last Admin: 12/31/17 13:59 Dose: 650 mg Heparin Sodium (Porcine) (Heparin -) 5,000 unit SQ TID [facility] Last Admin: 12/31/17 14:00 Dose: 5,000 unit Dextrose/Lactated Ringer's (D5-Lr -) 1,000 mls @ 100 mls/hr IV ASDIR [facility] Last Admin: 12/31/17 05:52 Dose: 100 mls/hr Ceftriaxone Sodium 1 gm/ (Dextrose) 50 mls @ 100 mls/hr IVPB 1600 [facility] Last Admin: 12/31/17 17:37 Dose: 100 mls/hr IMAGING -CXR: No evidence of active pulmonary disease. -EKG: NORMAL SINUS RHYTHM, NONSPECIFIC T WAVE ABNORMALITY, VR 79, QTc 454 ASSESSMENT/PLAN: 32 y/o F with a PMHx of asthma who presents with fever and diarrhea. #Sepsis -TMax 102, HR 94 -Likely Gastroenteritis given Diarrhea, Nausea/Vomiting, however persistent Fever on ABx will require further investigation -Check Blood parasite smear, Flu swab, Repeat Blood cx -Stool cx, Lactoferrin, C. Diff, Ova and parasite, FOBT pending -Continue to monitor newly developed Leukopenia -Continue Flagyl (Started on 12/29, likely 7 day course) -CXR noted above -First set of Blood cx's likely contaminated, will repeat -Urine Cx pending -Full liquid diet, Will advance as tolerated -Urine Hcg negative -Can consider CT A/P if develops WBC count, Abdominal pain or if sx's worsen -Continue Tylenol for fever -Continue D5LR @ 100 mls/hr -ID (Dr. Morales) Consulted, Appreciate rec's #Microcytosis -Iron studies pending #Hx of Asthma -Patient says she currently does not use a home inhaler; Pharmacy shows she is perscribed Ventolin and Pulmicort -Not complaining of any sx's at this time, Will reinstate home inhalers if patient becomes symptomatic -Continue to monitor #FEN -D5LR @ 100 mls/hr -Lytes WNL -Full liquid diet, advance as tolerated #PPx -DVT: Heparin Dispo: Obs, Med-Surg Visit type - Emergency Visit Emergency Visit: Yes ED Registration Date: 12/31/17 Care time: The patient presented to the Emergency Department on the above date and was hospitalized for further evaluation of their emergent condition. - New Patient This patient is new to me today: No - Critical Care Critical Care patient: No - Discharge Referral Referred to [facility] Med P.C.: No
[2018-01-01] MEDS: DEXTROSE 5%-LACTATED RINGERS 1,000 ML IV SCH (04:04)
[2018-01-01] MEDS: ACETAMINOPHEN 325 MG TABLET (FP) PO PRN ×2 (04:15→15:24)
[2018-01-01] MEDS: HEPARIN NA (PORCINE) 5,000 UNITS/ML 1ML VIAL SQ SCH ×3 (05:34→21:44)
[2018-01-01 08:08] LABS: SERUM IRON SATURATION 13 % (15-55); TOTAL IRON BINDING CAPACITY 182 ug/dL (250-450); UIBC 159 ug/dL (131-425)
[2018-01-01 08:19] LABS: ALK PHOS 56 U/L (45-117); ANION GAP 7 MMOL/L (8-16); BILIRUBIN,TOTAL 0.2 mg/dL (0.2-1); BLOOD UREA NITROGEN 4 mg/dL (7-18); CALCIUM 8.3 mg/dL (8.5-10.1); CHLORIDE 102 mmol/L (98-107); CO2 28 mmol/L (21-32); CREATININE 0.8 mg/dL (0.55-1.3); GLUCOSE,RANDOM 96 mg/dL (74-106); PHOSPHOROUS 2.7 mg/dL (2.5-4.9); POTASSIUM 3.6 mmol/L (3.5-5.1); SGOT/AST 38 U/L (15-37); SGPT/ALT 22 U/L (13-61); SODIUM 138 mmol/L (136-145); TOT PROT 6.5 g/dl (6.4-8.2)
[2018-01-01 09:54] LABS: BASO % 0.4 % (0-2.0); HEMATOCRIT 34.3 % (32.4-45.2); HEMOGLOBIN 10.4 GM/dL (10.7-15.3); LYMPH % 39.1 % (8-40); MCH 19.4 pg (25.7-33.7); MCHC 30.3 g/dl (32.0-36.0); MEAN CELL VOLUME 64.1 fl (80-96); MEAN PLT VOLUME 9.1 fl (7.5-11.1); MONO % 22.6 % (3.8-10.2); NEUT % 37.9 % (42.8-82.8); PLATELET COUNT 206 K/MM3 (134-434); RBC 5.35 M/mm3 (3.60-5.2); RDW 17.2 % (11.6-15.6)
--- NOTE | 2018-01-01 10:40 | EKG ---
Test Reason : Blood Pressure : / mmHG Vent. Rate : 084 BPM Atrial Rate : 084 BPM P-R Int : 166 ms QRS Dur : 084 ms QT Int : 352 ms P-R-T Axes : 048 014 -25 degrees QTc Int : 415 ms NORMAL SINUS RHYTHM T WAVE ABNORMALITY, CONSIDER INFERIOR ISCHEMIA T WAVE ABNORMALITY, CONSIDER ANTERIOR ISCHEMIA ABNORMAL ECG WHEN COMPARED WITH ECG OF 29-DEC-2017 22:57, NO SIGNIFICANT CHANGE WAS FOUND Confirmed by MATT ESTRADA MD ([id number]) on 01/01/2018 10:40:07 AM Referred By: Confirmed By:MATT ESTRADA MD
--- NOTE | 2018-01-01 13:05 | PN ---
Progress Note (short form) - Note Progress Note: no headache no abdominal pain no diarrhea no BM still some nausea feels weak fevers all night Vital Signs Period Temp Pulse Resp BP Sys/[place] Pulse Ox Last 24 Hr 99.8 F-101.0 F 78-94 18-20 106-124/48-75 100-100 bilateral conjunctival erythema neck supple cor-rrr llungs clear abd soft,nt ext no edema no rash CBC, BMP 01/01/18 07:00 01/01/18 07:00 Microbiology 12/31/17 10:20 Blood - Peripheral Venous Blood Culture - Preliminary NO GROWTH OBTAINED AFTER 24 HOURS, INCUBATION TO CONTINUE FOR 4 DAYS. 12/31/17 10:58 Blood - Peripheral Venous Blood Culture - Preliminary NO GROWTH OBTAINED AFTER 24 HOURS, INCUBATION TO CONTINUE FOR 4 DAYS. 12/31/17 17:15 Nasopharyngeal Swab Influenza Types A,B Antigen - Final 12/31/17 17:15 Nasopharyngeal Swab - Final 12/29/17 18:40 Blood - Peripheral Venous Blood Culture - Preliminary NO GROWTH OBTAINED AFTER 48 HOURS, INCUBATION TO CONTINUE FOR 3 DAYS. 12/29/17 18:52 Urine - Urine Clean Catch Urine Culture - Final NO GROWTH OBTAINED 12/29/17 18:54 Blood - Peripheral Venous Blood Culture - Preliminary Staphylococcus Coagulase Neg HIV negative a/p FUO HIV negative ?viral lfts normal clinically well continue rocephin another 24 hours check monospot, esr/crp Problem List - Problems (1) FUO (fever of unknown origin) Code(s): R50.9 - FEVER, UNSPECIFIED
[2018-01-01 14:31] LABS: ANISOCYTOSIS 2+; MACROCYTOSIS 0; OVALOCYTE 2+; PLATELET ESTIMATE NORMAL; TEAR DROP CELLS 2+
[2018-01-01] MEDS ORDERED: cefTRIAXone SODIUM 1 GM VIAL ONE (17:39)
[2018-01-01] MEDS: CEFTRIAXONE 1 GM in DEXTROSE 5%-WATER - 50 ML IVPB SCH (17:51)
--- NOTE | 2018-01-01 18:15 | PN ---
Teaching Attending Note Name of Resident: Rosy Diaz ATTENDING PHYSICIAN STATEMENT I saw and evaluated the patient. I reviewed the resident's note and discussed the case with the resident. I agree with the resident's findings and plan as documented. SUBJECTIVE: no diarrhea , cont ot have fever. one soft BM today . no N/V . AL resolved OBJECTIVE: NAD. MMM. CV : RRR, no MRG Lungs: CTAB Ext: no edema Abd: soft, NT, ND , NL BS ASSESSMENT AND PLAN: 32 y/o lady with no PMH who presented with abd pain and diarrhea . 1- Sepsis: cont to have fever, but clinically better - cont Ctx. - ESR and CRP pending - IVF - follow repeat Blood cx - US 2- Microcytic anemia : iron studies indicate ACD. ferritin elevation coulf be due to sepsis as well. repeat as out pt
--- NOTE | 2018-01-01 20:57 | PN ---
Physical Exam: SUBJECTIVE: Patient seen and examined this morning at bedside. Continued to have fevers overnight as per nursing staff. Only one small BM Since admission. OBJECTIVE: Vital Signs Period Temp Pulse Resp BP Sys/[place] Pulse Ox Last 24 Hr 99.8 F-102.4 F 20-89 20-20 98-134/52-74 100-100 GENERAL: A&Ox3, NAD HEAD: NCAT EYES: PERRL, EOMI ENT: Oropharynx clear without exudates, moist mucous membranes. NECK: No JVD LUNGS: Breath sounds equal, clear to auscultation bilaterally, no wheezes. HEART: Regular rate and rhythm, S1, S2 without murmur. ABDOMEN: Obese, Soft, nontender, nondistended, + bowel sounds, no guarding EXTREMITIES: 2+ pulses, no edema. NEUROLOGICAL: Cranial nerves II through XII grossly intact. Normal speech. SKIN: Warm, dry, no rashes or lesions noted Laboratory Results - last 24 hr 12/31/17 01/01/18 01/01/18 07:00 07:00 07:00 WBC 3.0 L RBC 5.35 H Hgb 10.4 L Hct 34.3 MCV 64.1 L MCH 19.4 L MCHC 30.3 L RDW 17.2 H Plt Count 206 MPV 9.1 Absolute Neuts (auto) 1.1 L Neutrophils % 37.9 L D Neutrophils % (Manual) 31.2 L Band Neutrophils % 18.8 Lymphocytes % 39.1 Lymphocytes % (Manual) 33.3 Monocytes % 22.6 H D Monocytes % (Manual) 6 Eosinophils % 0.0 Eosinophils % (Manual) 0.0 Basophils % 0.4 Basophils % (Manual) 0.0 Myelocytes % (Man) 0 Promyelocytes % (Man) 0 Blast Cells % (Manual) 0 Nucleated RBC % 0 Metamyelocytes 0 Hypochromia 1+ Platelet Estimate Normal Polychromasia 0 Poikilocytosis 3+ Anisocytosis 2+ Microcytosis 2+ Macrocytosis 0 Spherocytes 1+ Tear Drop Cells 2+ Ovalocytes 2+ [place] Cells 2+ Sodium 138 Potassium 3.6 Chloride 102 Carbon Dioxide 28 Anion Gap 7 L BUN 4 L Creatinine 0.8 Creat Clearance w eGFR > 60 Random Glucose 96 Calcium 8.3 L Phosphorus 2.7 Magnesium 2.0 Iron 23 L TIBC 182 L Iron Saturation 13 L Transferrin 147 L Total Bilirubin 0.2 AST 38 H ALT 22 Alkaline Phosphatase 56 Total Protein 6.5 Albumin 3.0 L Microbiology 12/29/17 18:40 Blood - Peripheral Venous Blood Culture - Preliminary NO GROWTH OBTAINED AFTER 72 HOURS, INCUBATION TO CONTINUE FOR 2 DAYS. 12/31/17 10:20 Blood - Peripheral Venous Blood Culture - Preliminary NO GROWTH OBTAINED AFTER 24 HOURS, INCUBATION TO CONTINUE FOR 4 DAYS. 12/31/17 10:58 Blood - Peripheral Venous Blood Culture - Preliminary NO GROWTH OBTAINED AFTER 24 HOURS, INCUBATION TO CONTINUE FOR 4 DAYS. 12/31/17 17:15 Nasopharyngeal Swab Influenza Types A,B Antigen - Final 12/31/17 17:15 Nasopharyngeal Swab - Final 12/29/17 18:52 Urine - Urine Clean Catch Urine Culture - Final NO GROWTH OBTAINED 12/29/17 18:54 Blood - Peripheral Venous Blood Culture - Preliminary Staphylococcus Coagulase Neg Active Medications Acetaminophen (Tylenol -) 650 mg PO Q6H PRN PRN Reason: Fever Or Pain Last Admin: 01/01/18 15:24 Dose: 650 mg Heparin Sodium (Porcine) (Heparin -) 5,000 unit SQ TID [facility] Last Admin: 01/01/18 13:29 Dose: 5,000 unit Dextrose/Lactated Ringer's (D5-Lr -) 1,000 mls @ 100 mls/hr IV ASDIR [facility] Last Admin: 01/01/18 04:04 Dose: 100 mls/hr Ceftriaxone Sodium 1 gm/ (Dextrose) 50 mls @ 100 mls/hr IVPB 1600 [facility] Last Admin: 01/01/18 17:51 Dose: 100 mls/hr IMAGING -CXR: No evidence of active pulmonary disease. -DUPLEX: No DVT is identified involving either leg. -EKG (12/29): NORMAL SINUS RHYTHM, NONSPECIFIC T WAVE ABNORMALITY, VR 79, QTc 454 -EKG (01/01): NORMAL SINUS RHYTHM, T WAVE ABNORMALITY, CONSIDER INFERIOR ISCHEMIA, T WAVE ABNORMALITY, CONSIDER ANTERIOR ISCHEMIA, VR 84, QTc 415 ASSESSMENT/PLAN: 32 y/o F with a PMHx of asthma who presents with fever and diarrhea. #Sepsis -TMax 102, HR 94; Continues to have fevers -Diarrhea, Nausea/Vomiting improving -Check Blood parasite smear, Flu swab, Repeat Blood cx -Stool cx, Lactoferrin, C. Diff, Ova and parasite, FOBT pending -Continue to monitor newly developed Leukopenia -Completed course of Flagyl (12/29-12/31) -Continue Ceftriaxone (Started on 12/31) -CXR, Duplex noted above -Blood cx, Urine Cx noted above -Full liquid diet, Will advance as tolerated -Urine Hcg negative -Can consider CT A/P if develops WBC count, Abdominal pain or if sx's worsen -Continue Tylenol for fever -Continue D5LR @ 100 mls/hr -ID (Dr. Morales) Consulted, Appreciate rec's, continue rocephin another 24 hours, check monospot, esr/crp #Microcytosis -Iron studies noted above, will need repeat as outpatient #Hx of Asthma -Patient says she currently does not use a home inhaler; Pharmacy shows she is perscribed Ventolin and Pulmicort -Not complaining of any sx's at this time, Will reinstate home inhalers if patient becomes symptomatic -Continue to monitor #FEN -D5LR @ 100 mls/hr -Lytes WNL -Full liquid diet, advance as tolerated #PPx -DVT: Heparin Dispo: Med-Surg Visit type - Emergency Visit Emergency Visit: Yes ED Registration Date: 12/31/17 Care time: The patient presented to the Emergency Department on the above date and was hospitalized for further evaluation of their emergent condition. - New Patient This patient is new to me today: No - Critical Care Critical Care patient: No - Discharge Referral Referred to [facility] No
[2018-01-02] MEDS: ACETAMINOPHEN 325 MG TABLET (FP) PO PRN (00:57)
[2018-01-02] MEDS: DEXTROSE 5%-LACTATED RINGERS 1,000 ML IV SCH ×2 (03:39→14:43)
[2018-01-02] MEDS: HEPARIN NA (PORCINE) 5,000 UNITS/ML 1ML VIAL SQ SCH ×3 (05:09→21:28)
[2018-01-02 07:56] LABS: BASO % 0.6 % (0-2.0); EOS % 0.9 % (0-4.5); HEMATOCRIT 34.6 % (32.4-45.2); LYMPH % 53.4 % (8-40); MCH 20.4 pg (25.7-33.7); MCHC 31.7 g/dl (32.0-36.0); MEAN CELL VOLUME 64.4 fl (80-96); MEAN PLT VOLUME 9.4 fl (7.5-11.1); MONO % 30.8 % (3.8-10.2); NEUT % 14.3 % (42.8-82.8); PLATELET COUNT 193 K/MM3 (134-434); RBC 5.37 M/mm3 (3.60-5.2); RDW 16.9 % (11.6-15.6); WHITE BLOOD COUNT 4.1 K/mm3 (4.0-10.0)
[2018-01-02 09:07] LABS: ANION GAP 9 MMOL/L (8-16); BLOOD UREA NITROGEN 3 mg/dL (7-18); CHLORIDE 103 mmol/L (98-107); CO2 28 mmol/L (21-32); CREATININE 0.7 mg/dL (0.55-1.3); GLUCOSE,RANDOM 88 mg/dL (74-106); POTASSIUM 3.5 mmol/L (3.5-5.1); SODIUM 140 mmol/L (136-145)
[2018-01-02 09:08] LABS: ALBUMIN 3.1 g/dl (3.4-5.0); ALK PHOS 53 U/L (45-117); BILIRUBIN,TOTAL 0.3 mg/dL (0.2-1); MAGNESIUM 1.8 mg/dL (1.8-2.4); SGOT/AST 91 U/L (15-37); SGPT/ALT 46 U/L (13-61); TOT PROT 6.6 g/dl (6.4-8.2)
--- NOTE | 2018-01-02 12:18 | PN ---
Teaching Attending Note Name of Resident: Rosy Diaz ATTENDING PHYSICIAN STATEMENT I saw and evaluated the patient. I reviewed the resident's note and discussed the case with the resident. I agree with the resident's findings and plan as documented. SUBJECTIVE: fever last night. feels better this am. appetite improved. no diarrhea . no abd pain . she noticed a lump in posterior neck last night OBJECTIVE: NAD. MMM. CV: RRR, no MRG Lungs: CTAB Ext: no edema Abd: soft, NT, ND , NL BS R Posterior neck with 1 cm tender nodular structure. no erythema . no drainage . no laymphadenopathy in neck , axilla or groins ASSESSMENT AND PLAN: 32 y/o lady with no PMH who presented with abd pain and diarrhea . 1- Sepsis: cont to have intermittent fever. - last day of CTX today - ESR and CRP noted, monospot neg, US with no DVT - cont IVF - Blood cx neg to date - still no clear diagnosis 2- Microcytic anemia : iron studies indicate ACD. ferritin elevation could be due to sepsis as well. repeat as out pt
[2018-01-02 13:20] LABS: PLATELET ESTIMATE NORMAL
--- NOTE | 2018-01-02 13:51 | PN ---
Physical Exam: SUBJECTIVE: Patient seen and examined this morning at bedside. Continued to have fevers overnight however feels much better this AM. Able to tolerate breakfast. Complains this AM of a posterior neck Bump. OBJECTIVE: Vital Signs Period Temp Pulse Resp BP Sys/[place] Pulse Ox Last 24 Hr 98.4 F-102.4 F 20-88 18-20 94-134/42-74 100-100 GENERAL: A&Ox3, NAD HEAD: NCAT EYES: PERRL, EOMI ENT: Oropharynx clear without exudates, moist mucous membranes. NECK: No JVD, Posterior Neck nodular bump, tender to palpation without surrounding erythema or active drainage. No accompanying Lymphadenopathy. LUNGS: Breath sounds equal, clear to auscultation bilaterally, no wheezes. HEART: Regular rate and rhythm, S1, S2 without murmur. ABDOMEN: Obese, Soft, nontender, nondistended, + bowel sounds, no guarding EXTREMITIES: 2+ pulses, no edema. NEUROLOGICAL: Cranial nerves II through XII grossly intact. Normal speech. SKIN: Warm, dry, no rashes or lesions noted Laboratory Results - last 24 hr 01/01/18 01/02/18 01/02/18 07:00 06:40 06:40 WBC RBC Hgb Hct MCV MCH MCHC RDW Plt Count MPV Absolute Neuts (auto) Total Counted Neutrophils % Neutrophils % (Manual) 31.2 L Band Neutrophils % 18.8 Lymphocytes % Lymphocytes % (Manual) 33.3 Monocytes % Monocytes % (Manual) 6 Eosinophils % Eosinophils % (Manual) 0.0 Basophils % Basophils % (Manual) 0.0 Myelocytes % (Man) 0 Promyelocytes % (Man) 0 Blast Cells % (Manual) 0 Nucleated RBC % Metamyelocytes 0 Plasma Cells Hypochromia 1+ Platelet Estimate Normal Polychromasia 0 Poikilocytosis 3+ Anisocytosis 2+ Microcytosis 2+ Macrocytosis 0 Spherocytes 1+ Tear Drop Cells 2+ Ovalocytes 2+ [place] Cells 2+ ESR 12 Sodium Potassium Chloride Carbon Dioxide Anion Gap BUN Creatinine Creat Clearance w eGFR Random Glucose Calcium Phosphorus Magnesium Total Bilirubin AST ALT Alkaline Phosphatase Creatine Kinase Creatine Kinase Index CK-MB (CK-2) C-Reactive Protein Cancelled Total Protein Albumin Monoscreen 01/02/18 01/02/18 01/02/18 06:40 06:40 06:40 WBC 4.1 RBC 5.37 H Hgb 11.0 Hct 34.6 MCV 64.4 L MCH 20.4 L MCHC 31.7 L RDW 16.9 H Plt Count 193 MPV 9.4 Absolute Neuts (auto) 0.6 L Total Counted 100 Neutrophils % 14.3 L D Neutrophils % (Manual) 16.0 L Band Neutrophils % Lymphocytes % 53.4 H D Lymphocytes % (Manual) 55.0 H D Monocytes % 30.8 H Monocytes % (Manual) 21 H D Eosinophils % 0.9 D Eosinophils % (Manual) Basophils % 0.6 Basophils % (Manual) Myelocytes % (Man) Promyelocytes % (Man) Blast Cells % (Manual) Nucleated RBC % 0 Metamyelocytes Plasma Cells 2 Hypochromia Platelet Estimate Normal Polychromasia Poikilocytosis Anisocytosis Microcytosis Macrocytosis Spherocytes Tear Drop Cells Ovalocytes Lisa Cells ESR Sodium 140 Potassium 3.5 Chloride 103 Carbon Dioxide 28 Anion Gap 9 BUN 3 L Creatinine 0.7 Creat Clearance w eGFR > 60 Random Glucose 88 Calcium 8.0 L Phosphorus 3.0 Magnesium 1.8 Total Bilirubin 0.3 AST 91 H ALT 46 Alkaline Phosphatase 53 Creatine Kinase 239 H Creatine Kinase Index 0.4 CK-MB (CK-2) < 1.0 C-Reactive Protein 0.8 H Total Protein 6.6 Albumin 3.1 L Monoscreen Negative Microbiology 12/31/17 10:58 Blood - Peripheral Venous Blood Culture - Preliminary NO GROWTH OBTAINED AFTER 48 HOURS, INCUBATION TO CONTINUE FOR 3 DAYS. 12/31/17 10:20 Blood - Peripheral Venous Blood Culture - Preliminary NO GROWTH OBTAINED AFTER 48 HOURS, INCUBATION TO CONTINUE FOR 3 DAYS. 12/29/17 18:40 Blood - Peripheral Venous Blood Culture - Preliminary NO GROWTH OBTAINED AFTER 72 HOURS, INCUBATION TO CONTINUE FOR 2 DAYS. 12/31/17 17:15 Nasopharyngeal Swab Influenza Types A,B Antigen - Final 12/31/17 17:15 Nasopharyngeal Swab - Final 12/29/17 18:52 Urine - Urine Clean Catch Urine Culture - Final NO GROWTH OBTAINED 12/29/17 18:54 Blood - Peripheral Venous Blood Culture - Preliminary Staphylococcus Coagulase Neg Active Medications Acetaminophen (Tylenol -) 650 mg PO Q6H PRN PRN Reason: Fever Or Pain Last Admin: 01/02/18 00:57 Dose: 650 mg Heparin Sodium (Porcine) (Heparin -) 5,000 unit SQ TID [facility] Last Admin: 01/02/18 05:09 Dose: 5,000 unit Dextrose/Lactated Ringer's (D5-Lr -) 1,000 mls @ 100 mls/hr IV ASDIR [facility] Last Admin: 01/02/18 03:39 Dose: 100 mls/hr Ceftriaxone Sodium 1 gm/ (Dextrose) 50 mls @ 100 mls/hr IVPB 1600 [facility] Stop: 01/02/18 16:29 IMAGING -CXR: No evidence of active pulmonary disease. -DUPLEX: No DVT is identified involving either leg. -EKG (12/29): NORMAL SINUS RHYTHM, NONSPECIFIC T WAVE ABNORMALITY, VR 79, QTc 454 -EKG (01/01): NORMAL SINUS RHYTHM, T WAVE ABNORMALITY, CONSIDER INFERIOR ISCHEMIA, T WAVE ABNORMALITY, CONSIDER ANTERIOR ISCHEMIA, VR 84, QTc 415 ASSESSMENT/PLAN: 32 y/o F with a PMHx of asthma who presents with fever and diarrhea. #Sepsis -TMax 102, HR 94; Continues to have fevers -Diarrhea, Nausea/Vomiting improving -Check Blood parasite smear, Flu swab, Repeat Blood cx -Stool cx, Lactoferrin, C. Diff, Ova and parasite, FOBT pending -Continue to monitor newly developed Leukopenia -Completed course of Flagyl (12/29-12/31), Ceftriaxone (12/31-01/01) -CXR, Duplex noted above -Blood cx, Urine Cx noted above -Full liquid diet, Will advance as tolerated -Urine Hcg negative -Can consider CT A/P if develops WBC count, Abdominal pain or if sx's worsen -Continue Tylenol for fever -Continue D5LR @ 100 mls/hr -ID (Dr. Morales) Consulted, Appreciate rec's #Microcytosis -Iron studies noted above, will need repeat as outpatient #Hx of Asthma -Patient says she currently does not use a home inhaler; Pharmacy shows she is perscribed Ventolin and Pulmicort -Not complaining of any sx's at this time, Will reinstate home inhalers if patient becomes symptomatic -Continue to monitor #FEN -D5LR @ 100 mls/hr -Lytes WNL -Full liquid diet, advance as tolerated #PPx -DVT: Heparin Dispo: Med-Surg Visit type - Emergency Visit Emergency Visit: Yes ED Registration Date: 12/31/17 Care time: The patient presented to the Emergency Department on the above date and was hospitalized for further evaluation of their emergent condition. - New Patient This patient is new to me today: No - Critical Care Critical Care patient: No - Discharge Referral Referred to [facility] No
--- NOTE | 2018-01-02 14:39 | PN ---
Progress Note (short form) - Note Progress Note: no headache no abdominal pain no diarrhea regular bm today feels weak Vital Signs Period Temp Pulse Resp BP Sys/[place] Pulse Ox Last 24 Hr 98.4 F-102.4 F 20-88 18-20 94-134/42-74 100-100 cor-rrr lungs clear abd soft,nt ext no edema no rash CBC, BMP 01/02/18 06:40 01/02/18 06:40 monoscreen negative HIV negative esr 12 a/p FUO HIV negative ?viral lfts normal clinically well d/c rocephin continue hydration d/w hospitalist Problem List - Problems (1) FUO (fever of unknown origin) Code(s): R50.9 - FEVER, UNSPECIFIED
[2018-01-02] MEDS ORDERED: CEFTRIAXONE 1 GM in DEXTROSE 5%-WATER - 50 ML IVPB SCH (16:00)
[2018-01-02] MEDS ORDERED: cefTRIAXone SODIUM 1 GM VIAL ONE (17:20)
[2018-01-02] MEDS ORDERED: DEXTROSE 5%-WATER - 50 ML IVPB ONE (17:20)
[2018-01-03] MEDS: HEPARIN NA (PORCINE) 5,000 UNITS/ML 1ML VIAL SQ SCH ×2 (06:28→14:54)
--- NOTE | 2018-01-03 09:00 | PN ---
Progress Note (short form) - Note Progress Note: feels great took a shower no fevers no tylenol hungry wants to eat Vital Signs Period Temp Pulse Resp BP Sys/[place] Pulse Ox Last 24 Hr 98.3 F-99 F 76-87 18-20 114-130/57-68 100 cor-rrr lungs clear abd soft,nt extn no edema CBC, BMP 01/02/18 06:40 01/02/18 06:40 Microbiology 12/29/17 18:40 Blood - Peripheral Venous Blood Culture - Preliminary NO GROWTH OBTAINED AFTER 96 HOURS, INCUBATION TO CONTINUE FOR 1 DAYS. 01/01/18 22:01 Stool Clostridium difficile Antigen (MONO) - Final 01/01/18 22:01 Stool Clostridium difficile Toxin Assay - Final 12/31/17 10:58 Blood - Peripheral Venous Blood Culture - Preliminary NO GROWTH OBTAINED AFTER 48 HOURS, INCUBATION TO CONTINUE FOR 3 DAYS. 12/31/17 10:20 Blood - Peripheral Venous Blood Culture - Preliminary NO GROWTH OBTAINED AFTER 48 HOURS, INCUBATION TO CONTINUE FOR 3 DAYS. 12/31/17 17:15 Nasopharyngeal Swab Influenza Types A,B Antigen - Final 12/31/17 17:15 Nasopharyngeal Swab - Final 12/29/17 18:52 Urine - Urine Clean Catch Urine Culture - Final NO GROWTH OBTAINED 12/29/17 18:54 Blood - Peripheral Venous Blood Culture - Preliminary Staphylococcus Coagulase Neg a/p fevers resolved suspect viral advance diet no objection to discharge home Problem List - Problems (1) FUO (fever of unknown origin) Code(s): R50.9 - FEVER, UNSPECIFIED
[2018-01-03 11:45] VITALS: BP 130/68; PULSE 76
--- NOTE | 2018-01-03 13:53 | PN ---
Progress Note (short form) - Note Progress Note: Subjective: no fever or chills, no abd pain, nodairrhea , no SOB Objective: Vital Signs: Last Vital Signs Temp Pulse Resp BP Pulse Ox 98.8 F 76 18 130/68 98 01/03/18 09:00 01/03/18 09:00 01/03/18 09:00 01/03/18 09:00 01/03/18 09:00 Physical Exam: NAD. CV: RRR, no MRG Lungs: CTAB Ext: no edema Abd: soft, NT, ND , NL BS ASSESSMENT AND PLAN: 32 y/o lady with no PMH who presented with abd pain and diarrhea . 1- Sepsis: resolved. fever resolved - will not treat + c diff Ag due to no diarrhea f/u with PCP dc home 2- Microcytic anemia : pari repeat of iron studies as out pt dc home Visit type - Emergency Visit Emergency Visit: Yes ED Registration Date: 12/31/17 Care time: The patient presented to the Emergency Department on the above date and was hospitalized for further evaluation of their emergent condition. - New Patient This patient is new to me today: No - Critical Care Critical Care patient: No
[2018-01-03 15:05] VITALS: TEMP 98.6
--- NOTE | 2018-01-04 08:30 | DS ---
Physical Exam: SUBJECTIVE: Patient discharged over the weekend, thus unable to perform subjective. OBJECTIVE: Vital Signs Period Temp Pulse Resp BP Sys/[place] Pulse Ox Last 24 Hr 98.6 F-98.8 F 76 18 130/68 98 PHYSICAL EXAM Patient discharged over the weekend, thus physical not performed by me. LABS Laboratory Last Values WBC 4.1 K/mm3 (4.0-10.0) 01/02/18 06:40 RBC 5.37 M/mm3 (3.60-5.2) H 01/02/18 06:40 Hgb 11.0 GM/dL (10.7-15.3) 01/02/18 06:40 Hct 34.6 % (32.4-45.2) 01/02/18 06:40 MCV 64.4 fl (80-96) L 01/02/18 06:40 MCH 20.4 pg (25.7-33.7) L 01/02/18 06:40 MCHC 31.7 g/dl (32.0-36.0) L 01/02/18 06:40 RDW 16.9 % (11.6-15.6) H 01/02/18 06:40 Plt Count 193 K/MM3 (134-434) 01/02/18 06:40 MPV 9.4 fl (7.5-11.1) 01/02/18 06:40 Absolute Neuts (auto) 0.6 K/mm3 (1.5-8.0) L 01/02/18 06:40 Total Counted 100 01/02/18 06:40 Neutrophils % 14.3 % (42.8-82.8) L D 01/02/18 06:40 Neutrophils % (Manual) 16.0 % (42.8-82.8) L 01/02/18 06:40 Band Neutrophils % 18.8 % 01/01/18 07:00 Lymphocytes % 53.4 % (8-40) H D 01/02/18 06:40 Lymphocytes % (Manual) 55.0 % (8-40) H D 01/02/18 06:40 Monocytes % 30.8 % (3.8-10.2) H 01/02/18 06:40 Monocytes % (Manual) 21 % (3.8-10.2) H D 01/02/18 06:40 Eosinophils % 0.9 % (0-4.5) D 01/02/18 06:40 Eosinophils % (Manual) 0.0 % (0-4.5) 01/01/18 07:00 Basophils % 0.6 % (0-2.0) 01/02/18 06:40 Basophils % (Manual) 0.0 % (0-2.0) 01/01/18 07:00 Myelocytes % (Man) 0 % (0-2) 01/01/18 07:00 Promyelocytes % (Man) 0 % (0-2) 01/01/18 07:00 Blast Cells % (Manual) 0 % (0-0) 01/01/18 07:00 Nucleated RBC % 0 % (0-0) 01/02/18 06:40 Metamyelocytes 0 % (0-2) 01/01/18 07:00 Plasma Cells 2 (0-20) 01/02/18 06:40 Hypochromia 1+ 01/01/18 07:00 Platelet Estimate Normal 01/02/18 06:40 Polychromasia 0 01/01/18 07:00 Poikilocytosis 3+ 01/01/18 07:00 Anisocytosis 2+ 01/01/18 07:00 Microcytosis 2+ 01/01/18 07:00 Macrocytosis 0 01/01/18 07:00 Spherocytes 1+ 01/01/18 07:00 Tear Drop Cells 2+ 01/01/18 07:00 Ovalocytes 2+ 01/01/18 07:00 Lisa Cells 2+ 01/01/18 07:00 ESR 12 mm/hr (0-20) 01/02/18 06:40 Retic Count 0.66 % (0.5-1.5) 12/31/17 07:00 PT with INR 18.40 SEC (9.7-13.0) H 12/29/17 19:34 INR 1.55 (0.83-1.09) H 12/29/17 19:34 PTT (Actin FS) 36.5 SECONDS (25.2-36.5) 12/29/17 19:34 VBG pH 7.40 (7.32-7.42) 12/29/17 18:52 POC VBG pCO2 41.1 mmHg (38-52) 12/29/17 18:52 POC VBG pO2 26.0 mmHg (28-48) L 12/29/17 18:52 Mixed VBG HCO3 24.8 meq/L (19-25) 12/29/17 18:52 Sodium 140 mmol/L (136-145) 01/02/18 06:40 Potassium 3.5 mmol/L (3.5-5.1) 01/02/18 06:40 Chloride 103 mmol/L (98-107) 01/02/18 06:40 Carbon Dioxide 28 mmol/L (21-32) 01/02/18 06:40 Anion Gap 9 MMOL/L (8-16) 01/02/18 06:40 BUN 3 mg/dL (7-18) L 01/02/18 06:40 Creatinine 0.7 mg/dL (0.55-1.3) 01/02/18 06:40 Creat Clearance w eGFR > 60 (>60) 01/02/18 06:40 Random Glucose 88 mg/dL (74-106) 01/02/18 06:40 Lactic Acid 1.0 mmol/L (0.4-2.0) 12/29/17 19:34 Calcium 8.0 mg/dL (8.5-10.1) L 01/02/18 06:40 Phosphorus 3.0 mg/dL (2.5-4.9) 01/02/18 06:40 Magnesium 1.8 mg/dL (1.8-2.4) 01/02/18 06:40 Iron 23 ug/dL (27-159) L 12/31/17 07:00 TIBC 182 ug/dL (250-450) L 12/31/17 07:00 Iron Saturation 13 % (15-55) L 12/31/17 07:00 Transferrin 147 mg/dL (200-370) L 12/31/17 07:00 Ferritin 1185.1 ng/ml (8-388) H 12/31/17 07:00 Total Bilirubin 0.3 mg/dL (0.2-1) 01/02/18 06:40 AST 91 U/L (15-37) H 01/02/18 06:40 ALT 46 U/L (13-61) 01/02/18 06:40 Alkaline Phosphatase 53 U/L (45-117) 01/02/18 06:40 Creatine Kinase 239 IU/L (26-192) H 01/02/18 06:40 Creatine Kinase Index 0.4 % (0.0-5.0) 01/02/18 06:40 CK-MB (CK-2) < 1.0 ng/mL (0.5-3.6) 01/02/18 06:40 Troponin I < 0.02 ng/ml (0.00-0.05) 12/29/17 18:52 C-Reactive Protein 0.8 MG/DL (0.00-0.3) H 01/02/18 06:40 Total Protein 6.6 g/dl (6.4-8.2) 01/02/18 06:40 Albumin 3.1 g/dl (3.4-5.0) L 01/02/18 06:40 Urine Color Yellow 12/29/17 18:52 Urine Appearance Cloudy 12/29/17 18:52 Urine pH 5.0 (5.0-8.0) 12/29/17 18:52 Ur Specific [place] 1.027 (1.010-1.035) 12/29/17 18:52 Urine Protein 2+ (NEGATIVE) H 12/29/17 18:52 Urine Glucose (UA) Negative (NEGATIVE) 12/29/17 18:52 Urine Ketones 2+ (NEGATIVE) H 12/29/17 18:52 Urine Blood Negative (NEGATIVE) 12/29/17 18:52 Urine Nitrite Negative (NEGATIVE) 12/29/17 18:52 Urine Bilirubin Negative (<2.0 mg/dL) 12/29/17 18:52 Urine Urobilinogen Negative mg/dL (0.2-1.0) 12/29/17 18:52 Ur Leukocyte Esterase Negative (NEGATIVE) 12/29/17 18:52 Urine WBC (Auto) 5 /hpf (3-5) 12/29/17 18:52 Urine RBC (Auto) 3 /hpf (0-3) 12/29/17 18:52 Ur Epithelial Cells Many /HPF (FEW) 12/29/17 18:52 Urine Bacteria Rare /hpf (NONE SEEN) 12/29/17 18:52 Urine Mucus Rare 12/29/17 18:52 Urine HCG, Qual Negative 12/29/17 18:52 Stool Occult Blood Negative (NEGATIVE) 12/30/17 16:00 Monoscreen Negative (NEGATIVE) 01/02/18 06:40 HIV 1&2 Antibody Screen Negative 12/31/17 16:00 HIV P24 Antigen Negative 12/31/17 16:00 Microbiology 12/31/17 10:58 Blood - Peripheral Venous Blood Culture - Final NO GROWTH AFTER 5 DAYS INCUBATION 12/31/17 10:20 Blood - Peripheral Venous Blood Culture - Final NO GROWTH AFTER 5 DAYS INCUBATION 12/29/17 18:54 Blood - Peripheral Venous Blood Culture - Preliminary Staphylococcus Coagulase Neg 12/29/17 18:40 Blood - Peripheral Venous Blood Culture - Final NO GROWTH AFTER 5 DAYS INCUBATION 01/01/18 22:01 Stool Clostridium difficile Antigen (MONO) - Final 01/01/18 22:01 Stool Clostridium difficile Toxin Assay - Final 12/31/17 17:15 Nasopharyngeal Swab Influenza Types A,B Antigen - Final 12/31/17 17:15 Nasopharyngeal Swab - Final 12/29/17 18:52 Urine - Urine Clean Catch Urine Culture - Final NO GROWTH OBTAINED IMAGING -CXR: No evidence of active pulmonary disease. -DUPLEX: No DVT is identified involving either leg. -EKG (12/29): NORMAL SINUS RHYTHM, NONSPECIFIC T WAVE ABNORMALITY, VR 79, QTc 454 -EKG (01/01): NORMAL SINUS RHYTHM, T WAVE ABNORMALITY, CONSIDER INFERIOR ISCHEMIA, T WAVE ABNORMALITY, CONSIDER ANTERIOR ISCHEMIA, VR 84, QTc 415 HOSPITAL COURSE: Date of Admission:12/31/17 Date of Discharge: 01/04/18 32 y/o F with a PMHx of asthma presented with fever and diarrhea. Lab values, Micro and imaging noted above. ID was consulted and patient completed a 4 day course of Antibiotics and diarrhea resolved. Patient was found to be C. Diff antigen positive however no longer experienced any diarrhea. Patients fevers resolved and she was able to tolerate diet. Patient was discharged home with instruction to follow up with her outpatient PCP. Minutes to complete discharge: 41 Discharge Summary Reason For Visit: [employer] DI[employer]HEA Condition: Improved - Instructions Diet, Activity, Other Instructions: you were treated for fever and gastroenteritis , but no source was found. please follow with Dr. Pang, as a primary care physician in the [facility]. report any new symptoms to . if you have recurrent fever , please notify MD or come back to ER. hand hygen and clean water. you need repeat liver function test in [address] Pang ( or any MD you choose ) , to perform test as part of follow up. Your PCP also need to repeat your iron studies due ot microcytic anemia good [place]uch Referrals: Avelino Pang MD [Staff Physician] - 1 Week Disposition: HOME - Home Medications Comprehensive Discharge Medication List: Ambulatory Orders Albuterol Sulfate Inhaler - [Ventolin HFA Inhaler -] 1 - 2 inh PO Q4H 12/30/17 Budesonide [Pulmicort Flexhaler] 180 mcg IH BID 12/30/17 This patient is new to me today: Yes Date on this admission: 01/05/18 Emergency Visit: No Critical Care patient: No - Discharge Referral Referred to [facility] No
== END 2018-01-03 18:31 | disposition home or self-care (01) | DRG 248 ==
LOC: JER 18:17 → JERBED 21:54 → J8W 12-30 05:00 → OBSVTOIN 12-31 11:43
PROVIDERS: ADMIT Internal Medicine; ATTEND Internal Medicine
DX: A04.72 Enterocolitis due to Clostridium difficile, not specified as recurrent (principal); D50.9 Iron deficiency anemia, unspecified; R50.9 Fever, unspecified; J45.909 Unspecified asthma, uncomplicated; R11.2 Nausea with vomiting, unspecified; D72.819 Decreased white blood cell count, unspecified; D70.9 Neutropenia, unspecified
CPT/HCPCS: 36415; 71045-TC-FY; 80053; 81003; 81015; 82272; 82550; 82553; 82728; 82803; 83540; 83550; 83605; 83735; 84100; 84466; 84484; 84703; 85025; 85044; 85610; 85651; 85730; 86140; 86308; 86790; 87040; 87086; 87177; 87186; 87209; 87324; 87389; 87449; 87804; 93005; 93010; 93970-TC; 99284-25; G0378; J1644; J7030